=== PATIENT | male | born 1990 | race Asian ===

== ENCOUNTER 2017-12-26 08:11 | Emergency (ER) | payer BC, OTHER ==
[~2017-12-26] VITALS: Ht 175.3 cm; Wt 85.3 kg
[~2017-12-26 08:11] MED LIST: Bactrim Ds Tab1 EACH PO; IBUP600 PO; Permethrin60 GM TOP
[2017-12-26] MEDS ORDERED: CEPH500 PO (08:58)
[2017-12-26] MEDS ORDERED: Bactrim Ds Tab1 EACH PO (08:58)
== END 2017-12-26 09:25 | disposition home or self-care (01) ==
LOC: ER 08:11
DX: L02.511 Cutaneous abscess of right hand (principal); F17.210 Nicotine dependence, cigarettes, uncomplicated; Z79.2 Long term (current) use of antibiotics
CPT/HCPCS: 10060; 99283

== ENCOUNTER 2018-06-09 00:22 | Emergency (ER) | payer BC, OTHER ==
[~2018-06-09] VITALS: Ht 175.3 cm; Wt 86.2 kg
[~2018-06-09 00:22] MED LIST changes: +CEPH500 PO
[2018-06-09] MEDS ORDERED: Cephalexin500 MG PO (03:08)
[2018-06-09] MEDS ORDERED: Bactrim Ds Tab1 EACH PO (03:08)
== END 2018-06-09 03:19 | disposition home or self-care (01) ==
LOC: ER 00:22
DX: L03.116 Cellulitis of left lower limb (principal); F17.200 Nicotine dependence, unspecified, uncomplicated

== ENCOUNTER 2019-01-11 15:56 | Emergency (ER) | payer OTHER ==
[~2019-01-11] VITALS: Ht 175.3 cm; Wt 92.1 kg
[~2019-01-11 15:56] MED LIST changes: +Cephalexin500 MG PO
[2019-01-11] MEDS ORDERED: Monodox100 MG PO (16:22)
== END 2019-01-11 16:25 | disposition home or self-care (01) ==
LOC: ER 15:56
DX: L03.317 Cellulitis of buttock (principal); L03.116 Cellulitis of left lower limb; F17.210 Nicotine dependence, cigarettes, uncomplicated
CPT/HCPCS: 99283